=== PATIENT | female | born 1955 | race Caucasian/White ===

== ENCOUNTER 2021-10-16 10:25 | Emergency (ER) | payer MEDICARE ==
[2021-10-16 11:25] LABS: CORONAVIRUS COVID-19 NAA NEGATIVE (NEGATIVE)
== END 2021-10-16 12:42 | disposition home or self-care (01) ==
LOC: JP.ED 10:25
DX: J40 Bronchitis, not specified as acute or chronic (principal); Z88.0 Allergy status to penicillin; Z79.4 Long term (current) use of insulin; Z79.82 Long term (current) use of aspirin; Z79.899 Other long term (current) drug therapy; Z20.822 Contact with and (suspected) exposure to COVID-19
CPT/HCPCS: 0241U; 71045; 99283

== ENCOUNTER 2022-11-21 07:11 | Day surgery (SDC) | payer MEDICARE ==
[2022-11-21] MEDS ORDERED: Midazolam 1 MG/ML 2 ML SDV ONE (07:33)
[2022-11-21] MEDS ORDERED: Propofol 200 MG/20 ML SDV ONE (07:33)
[2022-11-21] MEDS ORDERED: fentaNYL 50 MCG/ML SDV ONE (07:33)
[2022-11-21] MEDS ORDERED: Sodium Chloride 0.9% 1,000 ML IV SCH (08:00)
== END 2022-11-21 10:00 | disposition home or self-care (01) ==
LOC: JP.SDS 07:11
PROVIDERS: ATTEND Surgery
DX: Z12.11 Encounter for screening for malignant neoplasm of colon (principal); Z79.899 Other long term (current) drug therapy; Z88.0 Allergy status to penicillin
CPT/HCPCS: G0121; J2250; J2704; J3010; J7030

== ENCOUNTER 2022-11-22 06:09 | Day surgery (SDC) | payer MEDICARE ==
[2022-11-22] MEDS ORDERED: Sodium Chloride 0.9% 1,000 ML IV SCH (07:00)
[2022-11-22] MEDS ORDERED: fentaNYL 50 MCG/ML SDV ONE (07:24)
[2022-11-22] MEDS ORDERED: Propofol 200 MG/20 ML SDV ONE (07:24)
[2022-11-22] MEDS ORDERED: Midazolam 1 MG/ML 2 ML SDV ONE (07:24)
== END 2022-11-22 09:25 | disposition home or self-care (01) ==
LOC: JP.SDS 06:09
PROVIDERS: ATTEND Surgery
DX: Z12.11 Encounter for screening for malignant neoplasm of colon (principal); K57.30 Diverticulosis of large intestine without perforation or abscess without bleeding; I10 Essential (primary) hypertension; F25.9 Schizoaffective disorder, unspecified; E11.9 Type 2 diabetes mellitus without complications; Z88.1 Allergy status to other antibiotic agents
CPT/HCPCS: G0121; J2250; J2704; J3010; J7030